=== PATIENT | female | born 1940 | race Caucasian/White ===

== ENCOUNTER 2016-07-30 22:50 | Emergency (ER) | payer OTHER ==
[~2016-07-30] VITALS: Ht 157.5 cm; Wt 97.5 kg
--- NOTE | ~2016-07-30 | EKG ---
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 : 1940 Requested By: Maciej Tolentino Order Number: [id number] MD: Schuyler Sheth Measurements Intervals [place] Rate: 66 P: 7 AR: 163 QRS: 24 QRSD: 117 T: 31 QT: 409 QTc: 429 Interpretive Statements No significant changeSinus rhythm Nonspecific intraventricular conduction delay Artifact in lead(s) I,II,III,aVR,aVL,aVF Compared to ECG 06/05/2016 16:37:27 Electronically Signed On 07-31-2016 11:00:21 OPERATIONS RESEARCH ANALYST by Schuyler Sheth [email or web address] <ELECTRONICALLY SIGNED> By: Schuyler Sheth MD 07/31/16 1100 07 07 Schuyler Sheth MD /MOISE
[~2016-07-30 22:50] MED LIST: ADULT LOW DOSE81 MG PO; ASPIRIN325 PO; CALCIUM 500 +1 EAC5 PO; CARAFATE 1 GM TA1 G1 PO; CELEBREX 200 M200 MG PO; CLEOCIN HCL300 MG PO; CLIMARA PRO PA1 EACH TD; COLACE 100 MG100 MG PO; FENTANYL PA25 MCG/HR TD; IRON256 MG; KEFLEX500 MG PO; LASIX 40 MG TAB40 M1 PO; LASIX 80 MG TAB80 M1 PO; LIDOCAINE 2%2 %/5 GM PO; MIRAPEX; MIRAPEX1 MG PO; MOBIC15 MG PO; MOBIC7.5 MG PO; MULTIVITAMINS; NORCO 5-325 TA1 EACH PO; NORVASC 5 MG TAB5 MG PO; OXYCONTIN20 MG PO; PERCOCET 5-3251 EACH PO; PERCOCET PO; POTASSIUM20 PO; PREVACID 30MG C30 M1 PO; PRILOSEC 20 MG20 MG PO; PROAIR RESPICL90 MCG INH; PROZAC 20 MG20 M1 PO; SANCTURA20 MG PO; SIMVASTATIN40 MG PO; SYNTHROID100 MCG PO; TESSALON PERLE100 MG PO; TRAMADOL 50 MG50 MG PO; VITCB500GO; ZOCOR
[2016-07-30 23:44] LABS: ABSOLUTE NEUTROPHILS 8.6 thou/uL (1.4-8.2); BASOPHILS 0.7 % (0.0-2.0); EOSINOPHILS 1.7 % (0.0-3.0); HEMATOCRIT 39.7 % (37.0-47.0); HEMOGLOBIN 13.2 gm/dL (12.0-15.0); LYMPHOCYTES 11.1 % (24.0-44.0); MCH 32.1 pg (26.0-34.0); MCHC 33.3 % (28.0-37.0); MCV 96.5 fL (80.0-100.0); MONOCYTES 9.7 % (1.0-8.0); PLATELET COUNT 292 thou/uL (150-400); POLYS 76.8 % (36.0-66.0); RBC 4.11 mil/uL (4.20-5.00); RDW 16.3 % (10.5-14.5); WBC 11.2 thou/uL (4.0-11.0)
[2016-07-30 23:54] LABS: MANUAL DIFF NO
[2016-07-30 23:55] LABS: CALCIUM 9.4 mg/dL (8.5-10.1); POTASSIUM 3.5 mmol/L (3.5-5.1)
[2016-07-30] MEDS ORDERED: KEFLEX500 MG PO (23:57)
[2016-07-31 00:02] LABS: ALBUMIN 3.8 g/dL (3.4-5.0); TOTAL BILIRUBIN 0.3 mg/dL (<0.1-1.0); TOTAL PROTEIN 7.9 g/dL (6.4-8.2)
[2016-07-31 00:10] VITALS: BP 110/64
[2016-08-18] MEDS ORDERED: METHOTREXATE 22.5 MG PO (11:49)
[2016-08-18] MEDS ORDERED: KEFLEX500 MG PO (11:53)
[2016-08-18] MEDS ORDERED: MIRAPEX1 MG PO (11:57)
[2016-08-21] MEDS ORDERED: LEVOTHYROXINE0.2 M1 PO (11:37)
[2016-08-21] MEDS ORDERED: TERBINAFINE HCL30 GM TOP (11:37)
[2016-08-21] MEDS ORDERED: CLEOCIN HCL150 MG PO (11:38)
== END 2016-07-31 00:19 | disposition home or self-care (01) ==
LOC: ER 22:50
PROVIDERS: Emergency Medicine
DX: L03.116 Cellulitis of left lower limb (principal); L03.115 Cellulitis of right lower limb; R60.9 Edema, unspecified; F10.99 Alcohol use, unspecified with unspecified alcohol-induced disorder; E03.9 Hypothyroidism, unspecified; K21.9 Gastro-esophageal reflux disease without esophagitis; Z88.5 Allergy status to narcotic agent; Z88.0 Allergy status to penicillin

== ENCOUNTER 2016-11-24 10:01 | Emergency (ER) | payer OTHER ==
[~2016-11-24] VITALS: Ht 157.5 cm; Wt 98.0 kg
[~2016-11-24 10:01] MED LIST changes: +CLEOCIN HCL150 MG PO; +LEVOTHYROXINE0.2 M1 PO; +METHOTREXATE 22.5 MG PO; +TERBINAFINE HCL30 GM TOP
[2016-11-24 11:19] VITALS: BP 117/48
== END 2016-11-24 11:20 | disposition home or self-care (01) ==
LOC: ER 10:01
DX: S81.811A Laceration without foreign body, right lower leg, initial encounter (principal); E03.9 Hypothyroidism, unspecified; G43.909 Migraine, unspecified, not intractable, without status migrainosus; M19.90 Unspecified osteoarthritis, unspecified site; K21.9 Gastro-esophageal reflux disease without esophagitis; G25.81 Restless legs syndrome; E78.00 Pure hypercholesterolemia, unspecified; G62.9 Polyneuropathy, unspecified; Z90.89 Acquired absence of other organs; Z88.0 Allergy status to penicillin; Z88.5 Allergy status to narcotic agent; Z90.49 Acquired absence of other specified parts of digestive tract

== ENCOUNTER → 2017-03-16 | Outpatient (CLI) | payer OTHER | LOC: HYPER 06:55 | DX: I87.2 Venous insufficiency (chronic) (peripheral) (principal); L97.811 Non-pressure chronic ulcer of other part of right lower leg limited to breakdown of skin; S91.302A Unspecified open wound, left foot, initial encounter; S91.301A Unspecified open wound, right foot, initial encounter; M06.9 Rheumatoid arthritis, unspecified; H26.9 Unspecified cataract; I50.9 Heart failure, unspecified; Z86.14 Personal history of Methicillin resistant Staphylococcus aureus infection; Z85.43 Personal history of malignant neoplasm of ovary; Z96.643 Presence of artificial hip joint, bilateral; Z96.653 Presence of artificial knee joint, bilateral; Z96.611 Presence of right artificial shoulder joint; Z87.891 Personal history of nicotine dependence; Z72.89 Other problems related to lifestyle; X58.XXXA Exposure to other specified factors, initial encounter; Y93.89 Activity, other specified; Y92.89 Other specified places as the place of occurrence of the external cause; Y99.8 Other external cause status ==

== ENCOUNTER → 2017-04-20 | Outpatient (CLI) | payer OTHER | LOC: HYPER 03-30 17:13 | DX: I87.2 Venous insufficiency (chronic) (peripheral) (principal); L97.811 Non-pressure chronic ulcer of other part of right lower leg limited to breakdown of skin; S91.301D Unspecified open wound, right foot, subsequent encounter; S91.302D Unspecified open wound, left foot, subsequent encounter; M06.9 Rheumatoid arthritis, unspecified; H26.9 Unspecified cataract; I50.9 Heart failure, unspecified; Z85.43 Personal history of malignant neoplasm of ovary; Z86.14 Personal history of Methicillin resistant Staphylococcus aureus infection; Z96.643 Presence of artificial hip joint, bilateral; Z96.653 Presence of artificial knee joint, bilateral; Z96.611 Presence of right artificial shoulder joint; Z87.891 Personal history of nicotine dependence; Z72.89 Other problems related to lifestyle; W45.8XXD Other foreign body or object entering through skin, subsequent encounter ==

== ENCOUNTER → 2018-07-04 | Outpatient (CLI) | payer OTHER | LOC: HYPER 06:52 | DX: L89.613 Pressure ulcer of right heel, stage 3 (principal); I87.2 Venous insufficiency (chronic) (peripheral); I50.32 Chronic diastolic (congestive) heart failure; C56.1 Malignant neoplasm of right ovary; C56.2 Malignant neoplasm of left ovary; I50.9 Heart failure, unspecified; M06.9 Rheumatoid arthritis, unspecified; M43.12 Spondylolisthesis, cervical region; M51.9 Unspecified thoracic, thoracolumbar and lumbosacral intervertebral disc disorder; G20 Parkinson's disease; G62.2 Polyneuropathy due to other toxic agents; G89.29 Other chronic pain; G25.81 Restless legs syndrome; G47.33 Obstructive sleep apnea (adult) (pediatric); G43.909 Migraine, unspecified, not intractable, without status migrainosus; E03.9 Hypothyroidism, unspecified; F03.90 Unspecified dementia, unspecified severity, without behavioral disturbance, psychotic disturbance, mood disturbance, and anxiety; F33.8 Other recurrent depressive disorders; Z99.89 Dependence on other enabling machines and devices; Z85.43 Personal history of malignant neoplasm of ovary; Z87.891 Personal history of nicotine dependence ==

== ENCOUNTER → 2018-11-21 | Outpatient (CLI) | payer OTHER | LOC: HYPER 06:56 | DX: T81.31XD Disruption of external operation (surgical) wound, not elsewhere classified, subsequent encounter (principal); L89.613 Pressure ulcer of right heel, stage 3; I87.2 Venous insufficiency (chronic) (peripheral); I11.0 Hypertensive heart disease with heart failure; I50.32 Chronic diastolic (congestive) heart failure; R60.0 Localized edema; C56.1 Malignant neoplasm of right ovary; M06.9 Rheumatoid arthritis, unspecified; M43.12 Spondylolisthesis, cervical region; M51.9 Unspecified thoracic, thoracolumbar and lumbosacral intervertebral disc disorder; I25.10 Atherosclerotic heart disease of native coronary artery without angina pectoris; G25.81 Restless legs syndrome; G47.33 Obstructive sleep apnea (adult) (pediatric); G43.909 Migraine, unspecified, not intractable, without status migrainosus; C56.2 Malignant neoplasm of left ovary; G20 Parkinson's disease; G62.2 Polyneuropathy due to other toxic agents; G89.29 Other chronic pain; E03.9 Hypothyroidism, unspecified; F03.90 Unspecified dementia, unspecified severity, without behavioral disturbance, psychotic disturbance, mood disturbance, and anxiety; F33.8 Other recurrent depressive disorders; Z96.653 Presence of artificial knee joint, bilateral; Z99.89 Dependence on other enabling machines and devices; Z85.43 Personal history of malignant neoplasm of ovary; Z96.643 Presence of artificial hip joint, bilateral; Z96.611 Presence of right artificial shoulder joint; Z87.891 Personal history of nicotine dependence; Y83.8 Other surgical procedures as the cause of abnormal reaction of the patient, or of later complication, without mention of misadventure at the time of the procedure ==

== ENCOUNTER → 2018-12-04 | Outpatient (CLI) | payer OTHER | LOC: HYPER 06:15 | DX: T81.31XD Disruption of external operation (surgical) wound, not elsewhere classified, subsequent encounter (principal); L97.412 Non-pressure chronic ulcer of right heel and midfoot with fat layer exposed; C56.1 Malignant neoplasm of right ovary; C56.2 Malignant neoplasm of left ovary; G89.29 Other chronic pain; G62.2 Polyneuropathy due to other toxic agents; G20 Parkinson's disease; G43.909 Migraine, unspecified, not intractable, without status migrainosus; G25.81 Restless legs syndrome; G47.33 Obstructive sleep apnea (adult) (pediatric); I87.2 Venous insufficiency (chronic) (peripheral); I50.32 Chronic diastolic (congestive) heart failure; R60.0 Localized edema; M06.9 Rheumatoid arthritis, unspecified; M43.12 Spondylolisthesis, cervical region; M51.9 Unspecified thoracic, thoracolumbar and lumbosacral intervertebral disc disorder; I25.119 Atherosclerotic heart disease of native coronary artery with unspecified angina pectoris; F03.90 Unspecified dementia, unspecified severity, without behavioral disturbance, psychotic disturbance, mood disturbance, and anxiety; F33.8 Other recurrent depressive disorders; Z87.891 Personal history of nicotine dependence; Z96.643 Presence of artificial hip joint, bilateral; Z99.89 Dependence on other enabling machines and devices; Z96.653 Presence of artificial knee joint, bilateral; Z96.611 Presence of right artificial shoulder joint; Y83.8 Other surgical procedures as the cause of abnormal reaction of the patient, or of later complication, without mention of misadventure at the time of the procedure ==

== ENCOUNTER → 2018-12-18 | Outpatient (CLI) | payer OTHER | LOC: HYPER 06:53 | DX: T81.31XD Disruption of external operation (surgical) wound, not elsewhere classified, subsequent encounter (principal); L97.411 Non-pressure chronic ulcer of right heel and midfoot limited to breakdown of skin; I87.2 Venous insufficiency (chronic) (peripheral); I50.32 Chronic diastolic (congestive) heart failure; C56.1 Malignant neoplasm of right ovary; C56.2 Malignant neoplasm of left ovary; M06.9 Rheumatoid arthritis, unspecified; G62.2 Polyneuropathy due to other toxic agents; G89.29 Other chronic pain; M43.12 Spondylolisthesis, cervical region; G20 Parkinson's disease; M51.9 Unspecified thoracic, thoracolumbar and lumbosacral intervertebral disc disorder; E03.9 Hypothyroidism, unspecified; I20.9 Angina pectoris, unspecified; G25.81 Restless legs syndrome; G47.33 Obstructive sleep apnea (adult) (pediatric); L84 Corns and callosities; G62.9 Polyneuropathy, unspecified; G43.909 Migraine, unspecified, not intractable, without status migrainosus; R60.0 Localized edema; F03.90 Unspecified dementia, unspecified severity, without behavioral disturbance, psychotic disturbance, mood disturbance, and anxiety; F33.8 Other recurrent depressive disorders; Z96.643 Presence of artificial hip joint, bilateral; Z99.89 Dependence on other enabling machines and devices; Z96.653 Presence of artificial knee joint, bilateral; Z96.611 Presence of right artificial shoulder joint; Z87.891 Personal history of nicotine dependence; Y83.8 Other surgical procedures as the cause of abnormal reaction of the patient, or of later complication, without mention of misadventure at the time of the procedure ==